=== PATIENT | male | born 1945 | race Caucasian/White ===

== ENCOUNTER 2017-03-08 01:18 | Day surgery (SDCO) | payer MEDICARE ==
[~2017-03-08] VITALS: Ht 180.3 cm; Wt 109.5 kg
[2017-03-08 03:43] LABS: BASOPHIL 0.6 % (0-2); EOSINOPHIL 0.4 % (0-7); HCT 45.2 % (42.0-52.0); HGB 15.2 g/dl (13.2-18.0); LYMPHOCYTE 16.2 % (15-48); MCH 30.8 pg (25.0-31.0); MCHC 33.6 g/dL (32.0-36.0); MCV 91.7 fL (78.0-100.0); MONOCYTE 3.5 % (0-12); MPV 9.8 fL (6.0-9.5); NEUTROPHIL 79.3 % (41-80); PLT 259 K/uL (150-400); RBC 4.93 M/uL (4.70-6.00); RDW 14.6 % (11.5-14.0); WBC 10.9 K/uL (4.0-10.5)
[2017-03-08 04:00] LABS: ALBUMIN 4.7 g/dL (3.4-4.8); BILIRUBIN - TOTAL 0.3 mg/dL (0.1-1.0); CREATININE 0.9 mg/dL (0.7-1.2); GLOBULIN (CALCULATION) 3.4 g/dL (2.2-4.2); POTASSIUM 4.3 mmol/L (3.5-5.1); TOTAL PROTEIN 8.1 g/dL (6.4-8.3)
[2017-03-08 06:40] LABS: INR 1.04 (0.9-1.2); PROTHROMBIN TIME 13.2 SECONDS (11.7-14.0); PTT 27.7 SECONDS (23.2-31.4)
[2017-03-08 06:46] LABS: ALBUMIN 4.6 g/dL (3.4-4.8); BILIRUBIN - TOTAL 0.3 mg/dL (0.1-1.0); CREATININE 0.9 mg/dL (0.7-1.2); GLOBULIN (CALCULATION) 3.3 g/dL (2.2-4.2); MAGNESIUM 2.17 mg/dL (1.40-2.10); PHOSPHORUS 3.4 mg/dL (2.7-4.5); POTASSIUM 4.9 mmol/L (3.5-5.1); TOTAL PROTEIN 7.9 g/dL (6.4-8.3)
[2017-03-08 09:13] LABS: BASOPHIL 0.3 % (0-2); EOSINOPHIL 0.1 % (0-7); HCT 46.1 % (42.0-52.0); HGB 15.6 g/dl (13.2-18.0); LYMPHOCYTE 7.8 % (15-48); MCH 31.4 pg (25.0-31.0); MCHC 33.8 g/dL (32.0-36.0); MCV 92.8 fL (78.0-100.0); MONOCYTE 1.4 % (0-12); MPV 10.4 fL (6.0-9.5); NEUTROPHIL 90.4 % (41-80); PLT 237 K/uL (150-400); RBC 4.97 M/uL (4.70-6.00); RDW 14.8 % (11.5-14.0)
[2017-03-08 09:17] LABS: WBC 13.8 K/uL (4.0-10.5)
[2017-03-08 13:51] LABS: CKMB 2.79 ng/mL (0.97-4.94); MYOGLOBIN 36 ng/mL (26-65); TROPONIN T < 0.010 ng/mL
[2017-03-08 17:40] LABS: BILIRUBIN NEGATIVE (NEGATIVE); BLOOD 1+ Ery/uL (NEGATIVE); CLARITY CLEAR (CLEAR); COLOR YELLOW (YELLOW); GLUCOSE (U) 3+ mg/dL (NORMAL); KETONE (U) 2+ (MODERATE) mg/dL (NEGATIVE); LEUKOCYTES NEGATIVE Leu/uL (NEGATIVE); NITRITE NEGATIVE (NEGATIVE); PROTEIN TRACE (LOW) mg/dL (NEGATIVE); SPECIFIC GRAVITY 1.015 (1.001-1.030); UROBILINOGEN 0.2 mg/dL (0.2-1.0); pH 5.5 (5.0-9.0)
[2017-03-08 19:10] LABS: CKMB 2.44 ng/mL (0.97-4.94); MYOGLOBIN 29 ng/mL (26-65); TROPONIN T < 0.010 ng/mL
[2017-03-09 01:11] LABS: HCT 40.2 % (42.0-52.0); HGB 13.3 g/dl (13.2-18.0); MCH 30.5 pg (25.0-31.0); MCHC 33.1 g/dL (32.0-36.0); MCV 92.2 fL (78.0-100.0); MPV 9.7 fL (6.0-9.5); RBC 4.36 M/uL (4.70-6.00); RDW 14.5 % (11.5-14.0); WBC 9.3 K/uL (4.0-10.5)
[2017-03-09 01:39] LABS: CREATININE 0.8 mg/dL (0.7-1.2); POTASSIUM 4.3 mmol/L (3.5-5.1)
[2017-03-09 01:40] LABS: CKMB 2.44 ng/mL (0.97-4.94); MYOGLOBIN 24 ng/mL (26-65); TROPONIN T < 0.010 ng/mL
[2017-03-09 17:25] LABS: CREATININE 0.9 mg/dL (0.7-1.2); POTASSIUM 3.8 mmol/L (3.5-5.1)
[2017-03-09] MEDS ORDERED: NORCO 5-325 TA1 EACH PO (18:35)
[2017-03-09] MEDS ORDERED: HUMULIN N100 UNIT/1 SC ×2 (18:36)
[2017-03-09] MEDS ORDERED: LIDOCAINE 5% P1 EACH TOP (18:36)
[2017-03-09] MEDS ORDERED: GLUCOPHAGE1000 MG PO (18:37)
[2017-03-09] MEDS ORDERED: INVOKANA300 MG PO (18:37)
[2017-03-09] MEDS ORDERED: SYNTHROID150 MCG PO (18:37)
== END 2017-03-09 21:10 | disposition home or self-care (01) ==
LOC: FER 01:18 → FMS 03:15
PROVIDERS: Emergency Medicine Emergency Medical Services; Internal Medicine; ADMIT Internal Medicine
DX: R07.89 Other chest pain (principal); E11.9 Type 2 diabetes mellitus without complications; K52.9 Noninfective gastroenteritis and colitis, unspecified; E03.9 Hypothyroidism, unspecified; E87.2 Acidosis; Z90.89 Acquired absence of other organs; Z90.49 Acquired absence of other specified parts of digestive tract; Z87.442 Personal history of urinary calculi; Z80.8 Family history of malignant neoplasm of other organs or systems; Z79.4 Long term (current) use of insulin; Z79.84 Long term (current) use of oral hypoglycemic drugs; Z79.899 Other long term (current) drug therapy
CPT/HCPCS: 36415; 71101; 71250; 80048; 80053; 81001; 82009; 82150; 82550; 82553; 82962; 83036; 83605; 83690; 83735; 83874; 84100; 84484; 85025; 85610; 85730; 93005; 94010; 94640; 94760; 94762; 97116; 97161; 97165; 97530; G0378; J1100; J1170; J2270; J2405